=== PATIENT | female | born 1995 | race Caucasian/White ===

== ENCOUNTER 2020-04-04 16:18 | Emergency (ER) | payer SELFPAY ==
[~2020-04-04] VITALS: Ht 167.6 cm; Wt 67.1 kg
[2020-04-04 16:26] VITALS: BP 122/67
--- NOTE | 2020-04-04 16:31 | NUR ---
QUINTON NEFF AT BEDSIDE FOR WOUND CLEANING.
--- NOTE | 2020-04-04 16:52 | NUR ---
Patient eloped from facility. ER MD notified.
== END 2020-04-04 16:53 | disposition left against medical advice (07) ==
LOC: ER 16:21
DX: Z53.21 Procedure and treatment not carried out due to patient leaving prior to being seen by health care provider (principal)